=== PATIENT | male | born 1940 | race Asian ===

== ENCOUNTER → 2017-06-21 | Outpatient (CLI) | payer OTHER | END | disposition home or self-care (01) | LOC: CFH 10:10 | PROVIDERS: ATTEND Nurse Practitioner Family | DX: N63.13 Unspecified lump in the right breast, lower outer quadrant (principal) | CPT/HCPCS: 77066 ==

== ENCOUNTER → 2017-06-28 | Outpatient (CLI) | payer OTHER | END | disposition home or self-care (01) | LOC: CFH 12:02 | PROVIDERS: ATTEND Internal Medicine Cardiovascular Disease | DX: I08.0 Rheumatic disorders of both mitral and aortic valves (principal); E11.9 Type 2 diabetes mellitus without complications; I10 Essential (primary) hypertension; Z95.1 Presence of aortocoronary bypass graft | CPT/HCPCS: 93306 ==

== ENCOUNTER 2017-07-07 10:47 | Observation (INO) | payer OTHER ==
[2017-07-06 10:46] VITALS: BP 142/82
[2017-07-06 11:07] LABS: BASOPHILS # (AUTO) 0.02 x10^3/uL (0-0.1); BASOPHILS % (AUTO) 0 % (0-1); EOSINOPHILS # (AUTO) 0.52 x10^3/uL (0-0.4); EOSINOPHILS % (AUTO) 8 % (1-7); LYMPHOCYTES # (AUTO) 2.15 x10^3/uL (1-3.4); LYMPHOCYTES % (AUTO) 32 % (22-44); MD NO; MEAN CORPUSCULAR HGB CONC 34.7 g/dL (33.2-36.2); MEAN CORPUSCULAR VOLUME 92.3 fL (81-97); MEAN PLATELET VOLUME 10.3 fL (7.4-10.4); MONOCYTES # (AUTO) 0.39 x10^3/uL (0.2-0.8); MONOCYTES % (AUTO) 6 % (2-9); NEUTROPHILS # (AUTO) 3.58 x10^3/uL (1.8-6.8); NEUTROPHILS % (AUTO) 54 % (42-75); PLATELET COUNT 172 x10^3/uL (130-400); RED CELL DISTRIBUTION WIDTH 13.8 % (9.4-14.8)
[2017-07-06 11:17] LABS: ANION GAP 7 mmol/L (5-15); CALCIUM 9.2 mg/dL (8.5-10.1); CHLORIDE 106 mmol/L (98-107); CREATININE 1.03 mg/dL (0.7-1.3)
[~2017-07-07] VITALS: Ht 170.2 cm; Wt 81.0 kg
[~2017-07-07 10:47] MED LIST: ASPI-496 PO; ATOR20TA9 PO; CARV6.2512 PO; GABA300C10 PO; LISI-167 PO; METF850T2 PO; SITA100T PO
[2017-07-07] MEDS ORDERED: ASPIRIN 325 MG TABLET EC PO ONE (11:30)
[2017-07-07] MEDS ORDERED: MIDAZOLAM 1 MG/ML, 5ML ONE (12:48)
[2017-07-07] MEDS ORDERED: TICAGRELOR 90 MG TABLET ONE (12:49)
[2017-07-07] MEDS ORDERED: BIVALIRUDIN 250 MG ONE ×2 (12:49→15:29)
[2017-07-07] MEDS ORDERED: VERAPAMIL 2.5 MG/ML, 2ML ONE ×2 (12:49→14:24)
[2017-07-07] MEDS ORDERED: LIDOCAINE 2%, 20ML ONE (12:49)
[2017-07-07] MEDS ORDERED: HEPARIN 1,000 UNITS/ML, 10ML ONE (12:49)
[2017-07-07] MEDS ORDERED: FENTANYL PF 100 MCG/2ML ONE ×2 (12:49→14:16)
[2017-07-07] MEDS: SODIUM CHLORIDE 0.9% 1,000 ML IV SCH ×2 (15:42→23:42)
[2017-07-07] MEDS ORDERED: ZOLPIDEM 5MG TABLET PO PRN (16:00)
[2017-07-07] MEDS ORDERED: ONDANSETRON 2MG/ML, 2ML IVPush PRN (16:00)
[2017-07-07] MEDS ORDERED: BISACODYL 5 MG EC TABLET PO PRN (16:00)
[2017-07-07] MEDS ORDERED: ACETAMINOPHEN 325 MG TABLET PO PRN (16:00)
[2017-07-07 16:01] VITALS: BP 139/80
[2017-07-07] MEDS: CARVEDILOL 6.25 MG TABLET PO SCH (17:21)
[2017-07-07] MEDS: TICAGRELOR 90 MG TABLET PO SCH (19:57)
[2017-07-07] MEDS: GABAPENTIN 300 MG CAPSULE PO SCH (19:57)
[2017-07-07 20:00] VITALS: BP 136/80
[2017-07-08 02:28] VITALS: BP 119/64
[2017-07-08] MEDS: GABAPENTIN 300 MG CAPSULE PO SCH (06:16)
[2017-07-08 06:23] VITALS: BP 137/75
[2017-07-08] MEDS: SODIUM CHLORIDE 0.9% 1,000 ML IV SCH (07:42)
[2017-07-08] MEDS ORDERED: TICA90TA PO (08:23)
[2017-07-08] MEDS: TICAGRELOR 90 MG TABLET PO SCH (08:42)
[2017-07-08] MEDS: CARVEDILOL 6.25 MG TABLET PO SCH (08:43)
[2017-07-08] MEDS ORDERED: LISINOPRIL 10 MG TABLET PO SCH (09:00)
[2017-07-08] MEDS ORDERED: SITAGLIPTIN 50MG TABLET PO SCH (09:00)
[2017-07-08] MEDS ORDERED: ASPIRIN 81 MG TABLET EC PO SCH ×2 (09:00)
== END 2017-07-08 10:44 | disposition home or self-care (01) ==
LOC: CACL 10:47 → ORIP 15:42 → 5SO 15:55 → DCLOUNGE 07-08 10:26
PROVIDERS: ADMIT Internal Medicine Cardiovascular Disease; ATTEND Internal Medicine Cardiovascular Disease
DX: I25.10 Atherosclerotic heart disease of native coronary artery without angina pectoris (principal); E11.9 Type 2 diabetes mellitus without complications; E78.2 Mixed hyperlipidemia; I10 Essential (primary) hypertension; R01.1 Cardiac murmur, unspecified
CPT/HCPCS: 36415; 80048; 85025; 92978; 93459; 99156; 99157; C1725; C1753; C1769; C1874; C1887; C1894; C9600; G0378; J0583; J1644; J2250; J3010; J3490; J7030; Q9967

== ENCOUNTER → 2017-08-05 | Outpatient (CLI) | payer OTHER ==
[~2017-08-05] MED LIST changes: +MULT-717 PO; +TICA90TA PO
== END ==
LOC: STAR 09:27
PROVIDERS: ATTEND Plastic Surgery
DX: Z01.818 Encounter for other preprocedural examination (principal); R94.31 Abnormal electrocardiogram [ECG] [EKG]
CPT/HCPCS: 93005

== ENCOUNTER 2017-08-11 05:17 | Day surgery (SDC) | payer OTHER ==
[~2017-08-11] VITALS: Ht 170.2 cm; Wt 80.5 kg
[2017-08-11] MEDS ORDERED: LACTATED RINGERS 1,000 ML IV SCH (06:02)
[2017-08-11 06:03] VITALS: BP 151/73
[2017-08-11] MEDS ORDERED: FENTANYL PF 100 MCG/2ML ONE (06:43)
[2017-08-11] MEDS ORDERED: ACETAMINOPHEN 325 MG TABLET PO PRN (07:00)
[2017-08-11] MEDS ORDERED: HYDROmorphone 1 MG/ML, 1ML IV PRN (07:00)
[2017-08-11] MEDS ORDERED: PROMETHAZINE 12.5 MG SUPP PR PRN (07:00)
[2017-08-11] MEDS ORDERED: hydrALAzine 20 MG/ML, 1ML IV PRN (07:00)
[2017-08-11] MEDS ORDERED: FENTANYL PF 100 MCG/2ML IV PRN (07:00)
[2017-08-11] MEDS ORDERED: morphine SULFATE 10 MG/ML, 1ML IV PRN (07:00)
[2017-08-11] MEDS ORDERED: ONDANSETRON 2MG/ML, 2ML IVPush PRN (07:00)
[2017-08-11] MEDS ORDERED: OXYcodone 5 MG/5 ML ORAL.SOL UDC PO PRN (07:00)
[2017-08-11] MEDS ORDERED: LABETALOL 5MG/ML, 20ML IV PRN (07:00)
[2017-08-11] MEDS ORDERED: ROCURONIUM 10MG/ML,5ML ONE (07:07)
[2017-08-11] MEDS ORDERED: PROPOFOL 10 MG/ML, 20ML ONE (07:07)
[2017-08-11] MEDS ORDERED: CEFAZOLIN 1,000 MG ONE ×2 (07:07)
[2017-08-11] MEDS ORDERED: DEXAMETHASONE 4 MG/ML, 1ML ONE (07:08)
[2017-08-11] MEDS ORDERED: BUPIVACAINE/PF 0.25% INFIL ONE (07:27)
[2017-08-11] MEDS ORDERED: ONDANSETRON 2MG/ML, 2ML ONE (07:32)
[2017-08-11] MEDS ORDERED: ACETAMINOPHEN 650 MG/20.3 ML UDC ONE (08:11)
[2017-08-11] MEDS ORDERED: OXYcodone 5 MG/5 ML ORAL.SOL UDC ONE (08:11)
== END 2017-08-11 10:25 ==
LOC: OUT 05:17
PROVIDERS: ATTEND Plastic Surgery
DX: D03.71 Melanoma in situ of right lower limb, including hip (principal); E11.9 Type 2 diabetes mellitus without complications; E78.5 Hyperlipidemia, unspecified; I10 Essential (primary) hypertension; I42.9 Cardiomyopathy, unspecified; I35.0 Nonrheumatic aortic (valve) stenosis; Z79.82 Long term (current) use of aspirin
CPT/HCPCS: 11626; 15240; 82962; 88307; J0171; J0690; J1100; J2405; J2704; J3010; J3490; J7120

== ENCOUNTER → 2017-12-19 | Outpatient (CLI) | payer OTHER | END | disposition home or self-care (01) | LOC: CFH 06:38 | PROVIDERS: ATTEND Internal Medicine Cardiovascular Disease | DX: I08.0 Rheumatic disorders of both mitral and aortic valves (principal); I10 Essential (primary) hypertension; E78.5 Hyperlipidemia, unspecified; E11.9 Type 2 diabetes mellitus without complications; Z95.1 Presence of aortocoronary bypass graft; Z95.5 Presence of coronary angioplasty implant and graft | CPT/HCPCS: 93306 ==

== ENCOUNTER → 2018-08-21 | Outpatient (CLI) | payer MEDICARE ==
[~2018-08-21] MED LIST changes: +ATOR20TA37 PO; -ATOR20TA9 PO; +LIDOCAINE-MPF 1%, 5ML ONE; +METF850T10 PO; -METF850T2 PO
== END | disposition home or self-care (01) ==
LOC: RAD 12:09
PROVIDERS: ATTEND Surgery
DX: E04.1 Nontoxic single thyroid nodule (principal)
CPT/HCPCS: 10005; 88173

== ENCOUNTER → 2018-10-12 | Outpatient (CLI) | payer MEDICARE ==
[~2018-10-12] MED LIST changes: -LIDOCAINE-MPF 1%, 5ML ONE
== END | disposition home or self-care (01) ==
LOC: CVU 09:26
PROVIDERS: ATTEND Internal Medicine Cardiovascular Disease
DX: I08.8 Other rheumatic multiple valve diseases (principal); I11.9 Hypertensive heart disease without heart failure; I25.10 Atherosclerotic heart disease of native coronary artery without angina pectoris; E11.9 Type 2 diabetes mellitus without complications; E78.5 Hyperlipidemia, unspecified; Z95.1 Presence of aortocoronary bypass graft
CPT/HCPCS: C8929; Q9957

== ENCOUNTER → 2018-10-23 | Outpatient (CLI) | payer MEDICARE ==
[~2018-10-23] MED LIST changes: +DOBUTAMINE/D5W PMX 250 ML ONE
== END | disposition home or self-care (01) ==
LOC: CARD 08:15
PROVIDERS: ATTEND Registered Nurse
DX: I35.0 Nonrheumatic aortic (valve) stenosis (principal)
CPT/HCPCS: 93017; 93350; J1250

== ENCOUNTER 2018-11-30 07:28 | Inpatient (IN) | payer MEDICARE ==
[~2018-11-30] VITALS: Ht 170.2 cm; Wt 86.1 kg
[~2018-11-30 07:28] MED LIST changes: +ACET500T71 PO; +CLOP75TA PO; -DOBUTAMINE/D5W PMX 250 ML ONE; +SITA1TBM7 PO; +TERB250T14 PO
[2018-11-30] MEDS ORDERED: SODIUM CHLORIDE 0.9% 1,000 ML IV ONE (07:49)
[2018-11-30 07:52] VITALS: BP 135/80
[2018-11-30] MEDS ORDERED: CHLORHEXIDINE 15 ML UDC MM PRN (08:00)
[2018-11-30] MEDS ORDERED: ONDANSETRON 2MG/ML, 2ML IVPush PRN ×2 (08:00→10:30)
[2018-11-30 08:49] LABS: BASOPHILS # (AUTO) 0.02 x10^3/uL (0-0.1); BASOPHILS % (AUTO) 0 % (0-1); EOSINOPHILS # (AUTO) 0.28 x10^3/uL (0-0.4); EOSINOPHILS % (AUTO) 6 % (1-7); LYMPHOCYTES # (AUTO) 1.37 x10^3/uL (1-3.4); LYMPHOCYTES % (AUTO) 29 % (22-44); MD NO; MEAN CORPUSCULAR HEMOGLOBIN 30.8 pg (27.5-34.5); MEAN CORPUSCULAR VOLUME 93.2 fL (81-97); MEAN PLATELET VOLUME 9.4 fL (7.4-10.4); MONOCYTES # (AUTO) 0.42 x10^3/uL (0.2-0.8); MONOCYTES % (AUTO) 9 % (2-9); NEUTROPHILS % (AUTO) 56 % (42-75); PLATELET COUNT 221 x10^3/uL (130-400); RED BLOOD COUNT 4.64 x10^6/uL (4.38-5.82); RED CELL DISTRIBUTION WIDTH 15.8 % (9.4-14.8)
[2018-11-30 08:59] LABS: INTERNATIONAL NORMALIZED RATIO 1.09 (0.93-1.1); PROTHROMBIN TIME 11.4 Seconds (9.6-11.5)
[2018-11-30 09:00] LABS: ALANINE AMINOTRANSFERASE 33 U/L (12-78); ALBUMIN 3.9 g/dL (3.4-5.0); ANION GAP 8 mmol/L (5-15); CALCIUM 8.8 mg/dL (8.5-10.1); CHLORIDE 111 mmol/L (98-107); CREATININE 0.92 mg/dL (0.7-1.3)
[2018-11-30 09:04] LABS: ALKALINE PHOSPHATASE 38 U/L (45-117); BILIRUBIN,TOTAL 0.9 mg/dL (0.2-1.0); TOTAL PROTEIN 7.3 g/dL (6.4-8.2)
[2018-11-30] MEDS ORDERED: FENTANYL PF 250 MCG/5ML ONE (09:53)
[2018-11-30] MEDS ORDERED: ROCURONIUM 10MG/ML,5ML ONE (10:14)
[2018-11-30] MEDS ORDERED: PHENYLEPHRINE 10 MG/ML ONE (10:14)
[2018-11-30] MEDS ORDERED: PROPOFOL 10 MG/ML, 20ML ONE (10:14)
[2018-11-30] MEDS ORDERED: PROTAMINE SULFATE 10 MG/ML, 25ML ONE (10:14)
[2018-11-30] MEDS ORDERED: DEXAMETHASONE 4 MG/ML, 1ML ONE ×2 (10:14)
[2018-11-30] MEDS ORDERED: HEPARIN 1,000 UNITS/ML, 30ML ONE (10:14)
[2018-11-30] MEDS ORDERED: ONDANSETRON 2MG/ML, 2ML ONE ×2 (10:14)
[2018-11-30] MEDS ORDERED: DEXTROSE 4 GM TAB.CHEW PO PRN (10:30)
[2018-11-30] MEDS ORDERED: GLUCAGON 1 MG IM PRN (10:30)
[2018-11-30] MEDS ORDERED: DEXTROSE 50%, 50ML SYRINGE IVPush PRN (10:30)
[2018-11-30] MEDS ORDERED: hydrALAzine 20 MG/ML, 1ML IVPush PRN (10:30)
[2018-11-30] MEDS ORDERED: HYDROcodone/APAP 5/325 TABLET PO PRN (10:30)
[2018-11-30] MEDS ORDERED: ACETAMINOPHEN 500 MG TABLET PO PRN (10:30)
[2018-11-30] MEDS ORDERED: ACETAMINOPHEN 325 MG TABLET PO PRN (10:30)
[2018-11-30] MEDS ORDERED: LABETALOL 20 MG/4 ML IV (11:00)
[2018-11-30] MEDS ORDERED: CEFAZOLIN 1,000 MG ONE (11:22)
[2018-11-30] MEDS ORDERED: [UNRECOGNIZED DRUG - REMARK] MC SCH (11:30)
[2018-11-30] MEDS: CLOPIDOGREL 75 MG TABLET PO SCH (12:35)
[2018-11-30] MEDS: GABAPENTIN 300 MG CAPSULE PO SCH ×3 (12:35→20:47)
[2018-11-30] MEDS ORDERED: LABETALOL 20 MG/4 ML IV PRN (13:30)
[2018-11-30 14:40] VITALS: BP 110/69
[2018-11-30] MEDS: CARVEDILOL 6.25 MG TABLET PO SCH (17:10)
[2018-11-30 19:22] VITALS: BP 129/74
[2018-11-30] MEDS: SODIUM CHLORIDE FLUSH 10ML SYR IVF SCH (20:48)
[2018-11-30] MEDS ORDERED: ATORVASTATIN 20 MG TABLET PO SCH (21:00)
[2018-12-01 00:56] VITALS: BP 119/68
[2018-12-01] MEDS: GABAPENTIN 300 MG CAPSULE PO SCH ×2 (05:01→11:31)
[2018-12-01 05:35] LABS: BASOPHILS # (AUTO) 0.01 x10^3/uL (0-0.1); BASOPHILS % (AUTO) 0 % (0-1); EOSINOPHILS % (AUTO) 0 % (1-7); LYMPHOCYTES # (AUTO) 0.74 x10^3/uL (1-3.4); LYMPHOCYTES % (AUTO) 10 % (22-44); MD NO; MEAN CORPUSCULAR HEMOGLOBIN 30.4 pg (27.5-34.5); MEAN CORPUSCULAR VOLUME 94.8 fL (81-97); MEAN PLATELET VOLUME 8.9 fL (7.4-10.4); MONOCYTES # (AUTO) 0.47 x10^3/uL (0.2-0.8); MONOCYTES % (AUTO) 7 % (2-9); NEUTROPHILS # (AUTO) 5.87 x10^3/uL (1.8-6.8); NEUTROPHILS % (AUTO) 83 % (42-75); PLATELET COUNT 187 x10^3/uL (130-400); RED BLOOD COUNT 3.95 x10^6/uL (4.38-5.82)
[2018-12-01 05:45] LABS: ANION GAP 7 mmol/L (5-15); CALCIUM 8.4 mg/dL (8.5-10.1); CHLORIDE 109 mmol/L (98-107)
[2018-12-01 05:46] LABS: CREATININE 1.01 mg/dL (0.7-1.3)
[2018-12-01 07:10] VITALS: BP 126/74
[2018-12-01] MEDS: SODIUM CHLORIDE FLUSH 10ML SYR IVF SCH (08:57)
[2018-12-01] MEDS: CARVEDILOL 6.25 MG TABLET PO SCH (08:57)
[2018-12-01] MEDS: CLOPIDOGREL 75 MG TABLET PO SCH (08:57)
[2018-12-01] MEDS ORDERED: MULTIVITAMIN 1 TABLET PO SCH (09:00)
[2018-12-01] MEDS ORDERED: LISINOPRIL 10 MG TABLET PO SCH (09:00)
[2018-12-01] MEDS ORDERED: TERBINAFINE 250MG TABLET PO SCH (09:00)
[2018-12-01] MEDS ORDERED: ASPIRIN 81 MG TABLET EC PO SCH (09:00)
== END 2018-12-01 12:49 | disposition home or self-care (01) | DRG 266 ==
LOC: ORIP 07:28 → CCU 10:27 → 5SO 14:14 → DCLOUNGE 12-01 12:24
PROVIDERS: ADMIT Internal Medicine Cardiovascular Disease; ATTEND Internal Medicine Cardiovascular Disease
PROC: B24BZZ4 Ultrasonography of Heart with Aorta, Transesophageal (ICD-10-PCS; 2018-11-30)
PROC: 03HY32Z Insertion of Monitoring Device into Upper Artery, Percutaneous Approach (ICD-10-PCS; 2018-11-30)
PROC: B41D1ZZ Fluoroscopy of Aorta and Bilateral Lower Extremity Arteries using Low Osmolar Contrast (ICD-10-PCS; 2018-11-30)
PROC: 02RF38Z Replacement of Aortic Valve with Zooplastic Tissue, Percutaneous Approach (ICD-10-PCS; principal; 2018-11-30 09:30)
DX: I35.0 Nonrheumatic aortic (valve) stenosis (principal); Z00.6 Encounter for examination for normal comparison and control in clinical research program; I50.33 Acute on chronic diastolic (congestive) heart failure; I42.9 Cardiomyopathy, unspecified; D64.9 Anemia, unspecified; E11.9 Type 2 diabetes mellitus without complications; E78.5 Hyperlipidemia, unspecified; I25.10 Atherosclerotic heart disease of native coronary artery without angina pectoris; I11.0 Hypertensive heart disease with heart failure; I44.7 Left bundle-branch block, unspecified; Z95.5 Presence of coronary angioplasty implant and graft; Z95.1 Presence of aortocoronary bypass graft; Z79.82 Long term (current) use of aspirin; Z79.84 Long term (current) use of oral hypoglycemic drugs
CPT/HCPCS: 0399T; 33361; 36415; 80048; 80053; 83880; 85025; 85347; 85610; 85730; 86850; 86900; 86923; 87081; 93005; 93306; 93312; 93321; 93325; 93355; C1760; C1769; C1894; G0378; J0690; J1100; J1644; J2405; J2704; J2720; J3010; J2370; J7030; Q9967

== ENCOUNTER 2019-11-26 09:01 | Outpatient (CLI) | payer MEDICARE ==
[~2019-11-26 09:01] MED LIST changes: +ACET500T64 PO; -ACET500T71 PO
== END 2019-11-26 23:59 | disposition home or self-care (01) ==
LOC: CFH 09:01
PROVIDERS: ATTEND Internal Medicine Cardiovascular Disease
DX: I08.8 Other rheumatic multiple valve diseases (principal); I65.29 Occlusion and stenosis of unspecified carotid artery; I10 Essential (primary) hypertension; Z87.891 Personal history of nicotine dependence; Z95.1 Presence of aortocoronary bypass graft; Z95.4 Presence of other heart-valve replacement
CPT/HCPCS: 93306